=== PATIENT | female | born 1940 | race Caucasian/White ===

== ENCOUNTER 2016-06-18 14:39 | Inpatient (IN) | payer MEDICARE, OTHER ==
[~2016-06-18] VITALS: Ht 167.6 cm; Wt 63.5 kg
[2016-06-18] MEDS ORDERED: DULOXETINE HCL60 MG PO (17:03)
[2016-06-18] MEDS ORDERED: TRAZODONE HCL50 MG PO ×2 (17:04→17:09)
[2016-06-18] MEDS ORDERED: KLONOPIN TAB 00.5 MG PO (17:05)
[2016-06-18] MEDS ORDERED: FERROUS SULFAT324 MG PO (17:05)
[2016-06-18] MEDS ORDERED: ESSENTIAL DAIL1 EACH PO (17:06)
[2016-06-18] MEDS ORDERED: OMEPRAZOLE40 MG PO (17:06)
[2016-06-18] MEDS ORDERED: SINGULAIR10 MG PO (17:07)
[2016-06-18] MEDS ORDERED: COLACE 100MG C100 MG PO (17:07)
[2016-06-18] MEDS ORDERED: CLARITIN 10MG T10 MG PO (17:08)
[2016-06-18] MEDS ORDERED: LANOXIN TAB0.125 MG GT (17:09)
[2016-06-18] MEDS ORDERED: ELIQUIS 5 MG TAB5 MG PO (17:10)
[2016-06-18] MEDS ORDERED: ABILIFY5 MG PO (17:11)
[2016-06-18] MEDS ORDERED: GABAPENTIN300 MG PO (17:11)
[2016-06-18 19:39] LABS: BUN/CREATININE RATIO 18 (0-10)
[2016-06-19 04:08] LABS: HEMOGLOBIN 9.2 gm/dl (12.3-15.3); RED BLOOD COUNT 3.03 M/UL (4.00-5.10); WHITE BLOOD COUNT 27.4 K/UL (4.5-11.0)
[2016-06-19 04:23] LABS: BUN/CREATININE RATIO 18 (0-10)
[2016-06-19] MEDS ORDERED: FLONASE 0.05% N16 GM (17:08)
[2016-06-20 04:48] LABS: HEMOGLOBIN 8.7 gm/dl (12.3-15.3); RED BLOOD COUNT 2.86 M/UL (4.00-5.10)
[2016-06-20 04:54] LABS: WHITE BLOOD COUNT 18.2 K/UL (4.5-11.0)
[2016-06-20 05:14] LABS: BUN/CREATININE RATIO 11 (0-10)
[2016-06-21 03:59] LABS: HEMOGLOBIN 8.4 gm/dl (12.3-15.3); RED BLOOD COUNT 2.72 M/UL (4.00-5.10)
[2016-06-21 04:02] LABS: WHITE BLOOD COUNT 13.6 K/UL (4.5-11.0)
[2016-06-21 05:02] LABS: BUN/CREATININE RATIO 12 (0-10)
[2016-06-22 04:54] LABS: HEMOGLOBIN 9.7 gm/dl (12.3-15.3); WHITE BLOOD COUNT 13.4 K/UL (4.5-11.0)
[2016-06-22 04:55] LABS: RED BLOOD COUNT 3.19 M/UL (4.00-5.10)
[2016-06-22 05:16] LABS: BUN/CREATININE RATIO 9 (0-10)
--- NOTE | 2016-06-22 18:24 | NUR ---
plan of care reviewed. no changes in paatient condition. agree with plan of care.
[2016-06-23 05:03] LABS: HEMOGLOBIN 9.7 gm/dl (12.3-15.3); RED BLOOD COUNT 3.18 M/UL (4.00-5.10); WHITE BLOOD COUNT 14.3 K/UL (4.5-11.0)
[2016-06-23 05:25] LABS: BUN/CREATININE RATIO 13 (0-10)
[2016-06-23] MEDS ORDERED: MEDROL DOSEPAK 24 MG PO (20:49)
== END 2016-06-24 02:54 | disposition home or self-care (01) | DRG 871 ==
LOC: CCU 16:03 → PROG CARE 06-21 16:48 → MED SURG 4 06-22 18:00
PROVIDERS: ADMIT Internal Medicine
DX: A41.9 Sepsis, unspecified organism (principal); J18.9 Pneumonia, unspecified organism; J96.21 Acute and chronic respiratory failure with hypoxia; R65.21 Severe sepsis with septic shock; J44.0 Chronic obstructive pulmonary disease with (acute) lower respiratory infection; J44.1 Chronic obstructive pulmonary disease with (acute) exacerbation; C34.11 Malignant neoplasm of upper lobe, right bronchus or lung; M19.90 Unspecified osteoarthritis, unspecified site; K21.9 Gastro-esophageal reflux disease without esophagitis; E11.9 Type 2 diabetes mellitus without complications; E03.9 Hypothyroidism, unspecified; D50.9 Iron deficiency anemia, unspecified; I48.0 Paroxysmal atrial fibrillation; F41.9 Anxiety disorder, unspecified; F32.9 Major depressive disorder, single episode, unspecified; Z99.81 Dependence on supplemental oxygen; Z79.4 Long term (current) use of insulin
CPT/HCPCS: 36415; 71010; 71020; 71260; 80048; 80202; 82962; 83605; 85025; 85027; 87040; 87070; 87205; 94640; 94664; 97110; 97116; 97530; 97535; J1817; J1956; J2920; J3370; J7030; J7050; J7070; J7509; Q9962